=== PATIENT | female | born 1960 | race Caucasian/White ===

== ENCOUNTER 2016-11-28 06:08 | Inpatient (IN) | payer BC, OTHER ==
[~2016-11-28 06:08] MED LIST: MORPHINE SULFATE 15 MG TABLET.SA PO PRN; RINGERS SOLUTION,LACTATED 1,000 ML IV PRN; ROPIVACAINE HCL/PF 100 MG, EPINEPHrine 0.2 MG, KETOROLAC TROMETHAMINE 30 MG in NORMAL S... IJ PRN; TRANEXAMIC ACID 1,000 MG in NORMAL SALINE 100 ML IV PRN; ceFAZolin SODIUM 1 GM VIAL IV PRN
--- OUTSIDE RECORDS SUMMARY | 2016-11-28 06:13 | XMS REPORT | Continuity of Care Document ---
:1960 Author Organization [facility] ([facility]) Address [address] [place] [address] Phone [phone] Care Team Providers Name Role Phone Unavailable Primary Care Provider Unavailable Source Comments This disclosure is being made pursuant to the Care Everywhere program, applicable federal and state laws, and may not contain all informaitonavailable regarding this patient.[facility] ([facility]) Active Allergies and Adverse Reactions No Active Allergies Current Medications Not on file Active Problems Not on file Social History Tobacco Use Types Packs/Day Years Used Date Never Assessed Last Filed Vital Signs Vital Sign Reading Time Taken Blood Pressure - - Pulse - - Temperature - - Respiratory Rate - - Height 1.6 m (5' 2.99") 04/10/2002 9:06 AM CDT Weight 93.096 kg (205 lb 3.8 oz) 04/10/2002 9:06 AM CDT Body Mass Index 36.37 04/10/2002 9:06 AM CDT Oxygen Saturation - - Plan of Care Health Maintenance Due Date Last Done Comments HCV Screening 1960 Hepatitis B Vaccine (1 of 3 - Primary Series) 1960 Tdap Vaccine 1971 Lipid Disorder Screening 1978 MMR Vaccine 1978 Td Vaccine 1978 Cervical Cancer Screening 1990 Mammogram 2000 Colonoscopy 2010 Influenza Vaccine: Seasonal (#1) 03/14/2016 Results from Last 3 Months Not on file
[2016-11-28] MEDS ORDERED: RINGERS SOLUTION,LACTATED 1,000 ML IV ONE ×3 (07:40→10:34)
[2016-11-28] MEDS ORDERED: MAG HYDROX/ALUMINUM HYD/SIMETH 30 ML UDC PO PRN (10:33)
[2016-11-28] MEDS ORDERED: PROMETHAZINE HCL 5 MG in DEXTROSE 5 % IN WATER 50 ML IV PRN ×2 (10:33)
[2016-11-28] MEDS ORDERED: ACETAMINOPHEN 500 MG TABLET PO PRN (10:33)
[2016-11-28] MEDS ORDERED: diphenhydrAMINE HCL 50 MG/ML VIAL IV PRN (10:33)
[2016-11-28] MEDS ORDERED: HYDROmorphone HCL 1 MG/ML DISP.SYRIN IV PRN (10:33)
[2016-11-28] MEDS ORDERED: ONDANSETRON HCL/PF 2 MG/ML VIAL IV PRN (10:33)
[2016-11-28] MEDS ORDERED: MAGNESIUM HYDROXIDE 30 ML UDC PO PRN (10:33)
[2016-11-28] MEDS ORDERED: ZOLPIDEM TARTRATE 5 MG TABLET PO PRN (10:33)
--- NOTE | 2016-11-28 10:39 | OR ---
Operative Report - Dictated Report Narrative: Date: 11/28/2016 Preoperative diagnosis: Left Knee degenerative joint disease. Postoperative diagnosis: Left Knee degenerative joint disease. Procedure: Left Total knee arthroplasty. Surgeon: Daryl Art M.D. Plc Programmer: Gregory Ivey PA-C Anesthesia: Spinal with regional block and local periarticular joint injection. Complications: None Specimens: Bone for disposal. Estimated blood loss: Minimal. Tourniquet time: 120 Minutes at 325 millimeters of mercury. Retained implants: Depuy Attune size 6 narrow left lugged cemented posterior stabilized femoral component. Size 4 fixed-bearing cemented tibial platform. 6 by 5 millimeter posterior stabilized cross-linked tibial insert. 35 millimeter medialized patella button. Indications: Mrs. Kaufman is a 56-year-old female who has long-standing bilateral knee pain. She is undergoing staged bilateral total knee arthroplasties with the left being the one today. This patient was followed in my clinic for period of time with significant complaints of left knee pain consistent with arthritic changes. They had failed conservative measures including, but not limited to, activity modification, passage of time, medications, and other conservative measures. Patient wished to proceed with surgical treatment. The risks, benefits, and alternatives were discussed in clinic. The risks of , blood clots, bleeding, infection, nerve/tendon blood vessel/ injury, malposition of components, intraoperative fracture, postoperative limited range of motion, persistent pain, failure of components, and need for additional procedures. Patient wished to proceed consent was obtained after answering all questions. Procedure: After marking the correct extremity on the floor, the patient was taken to the operating room. A timeout was performed. IV antibiotics consisting of Ancef were administered prior to the procedure. A regional followed by spinal anesthetic was induced by anesthesia on the operative table with all bony prominences well-padded. Camacho catheter was placed, and a bump was placed under the operative side buttock. SCDs and NEGRITO hose were utilized on the nonoperative leg. A well-padded tourniquet was applied to the operative thigh. The operative leg was then pre-scrubbed with alcoho,l prepped, and draped in a standard sterile fashion. After exsanguinating the extremity with an Esmarch bandage, the tourniquet was inflated. After marking out the anterior knee for standard incision centered over the patella, the skin was incised and dissected down to the joint retinaculum. The joint retinaculum was marked out as well as the horizontal axis of the patella, and a standard medial parapatellar arthrotomy was then made. The most proximal aspect of the quadriceps tendon and the patella tendon insertion were protected from release. A partial synovectomy was performed as well as a resection of the infrapatellar fat pad. The distal femoral fat pad proximal to the trochlea was also resected using cautery. The soft tissues were elevated off the medial aspect of the proximal tibia using a Camp elevator ensuring that we did not transect the medial collateral ligament. Upon initial evaluation range of motion was approximately 0 degrees to 110 degrees of flexion. There were signs of advanced arthrosis in the medial, patellofemoral, and to a lesser degree the lateral joint spaces. There were large marginal osteophytes which were removed with a rongeur. The knee was hyperflexed and the patella was tucked laterally. Protecting the surrounding soft tissues with Homans, an entry drill was placed down the femoral canal using Whitesides line for guidance into the entry point. The intramedullary femoral alignment rahat was utilized in order to cut the distal femur in 5 degrees of valgus resecting 10 millimeters of bone. Next the distal femur was sized to a size 6. A posterior referencing guide was utilized to place the distal femoral cutting block in 3 degrees of external rotation. This was pinned into place. The rotation was confirmed both visually and based on anatomic landmarks. The 4 in 1 cutting jig of the appropriate size was utilized in order to make all bony cuts. The angle wing was used to ensure no notching. Retractors were utilized in order to protect surrounding soft tissues. This cut did not result in any excessive notching. We then cut the box centered over the distal femur. This allowed for resection of the anterior and posterior cruciate ligaments. I then turned my attention to the preparation of the tibia. Using an extra medullary tibial alignment rahat, 2 millimeters of bone was resected off the medial articular surface. This was made perpendicular to the mechanical axis of the joint with the alignment rahat centered over the ankle mortise. The alignment rahat was checked and was noted to be parallel to the mechanical axis, centered over the medial one third of the tibial tubercle, paralleling the anterior surface of the tibia. We then turned our attention to the remaining meniscus and soft tissues. These were removed while protecting the surrounding ligaments and soft tissues. The marginal osteophytes off the anterior, posterior, medial, lateral aspects of the femur and tibia were removed. The tibia was sized out to a size 4. Next the tibia was drilled and punched in an externally rotated position. Next the trial femur and a series of tibial inserts were utilized in order to allow for full extension and maximal flexion. It was found that a 5 millimeter insert gave the best range of motion and stability at multiple flexion points as well as at full extension there was less than 2 mm of gapping both medially and laterally. There is minimal anterior translation with the knee at 90 degrees of flexion and no signs of being able to dislocate the knee. The patella was then prepared. The initial thickness was 20 millimeters. This was reamed down to 12 millimeters parallel to the anterior surface of the patella. It was sized out to a size 35 medialized patella button. This was then drilled and trialed. Without any medial restraint the patella tracked appropriately and did not sublux or dislocate. At this point, it was felt these were the appropriate sized implants, and all trials were removed. The standard periarticular joint injection consisting of ropivacaine, Toradol, and epinephrine were injected into the periarticular joint tissues. The bony surfaces were thoroughly irrigated with a pulsatile- suction saline irrigation device. A bone plug from the prior resected anterior chamfer cut was placed into the drill hole at the distal femur. The bony surfaces were then dried in preparation for placement of the implants. The cement was vacuum mixed per the vp human resources's instructions. The cement was placed on the dry bony surfaces and posterior aspect of the implants. The implants were impacted into place, removing all extruded cement. At this point anesthesia administered tranexamic acid per protocol intravenously. The knee was placed in extension with axial loading with the trial insert while the cement cured. Once the cement cured, all remaining extruded cement was removed. The knee was placed through a range of motion with the trial insert to ensure appropriate range of motion and stability. Final range of motion was approximately 0 to 120 degrees. The knee was again thoroughly irrigated with pulsatile saline lavage. The final polyethylene insert was then impacted into place ensuring no retained soft tissues. The remaining periarticular joint injection was injected. A medium Hemovac drain was placed exiting superior laterally. The knee was then placed over a triangle and the arthrotomy was closed with interrupted #1 Vicryl after thoroughly irrigating the joint. The deep and subcutaneous tissues were closed with interrupted oh and 3-0 Vicryl respectively. Skin was closed with a running subcutaneous 3-0 Monocryl and Prineo Dermabond dressing. 4 x 4's, ABD, Sof-Rol, and a full leg James wrap were applied. All sponge, needle, blade, and instrument counts were correct prior to closing the wounds. Postoperative condition: The patient was awoken and transferred to the postanesthesia care unit in stable condition. Plan is to be admitted to the inpatient medical/surgical floor postoperatively for 24 hours of IV antibiotics , physical therapy, occupational therapy, and medical comanagement. Patient will be weightbearing as tolerated with range of motion as tolerated. DVT prophylaxis will be with SCDs, NEGRITO hose, and pharmacological anticoagulation. Anticipated hospital stay is approximately 2-4 days.
[2016-11-28] MEDS ORDERED: ALBUTEROL SULFATE 2.5 MG/3 ML VIAL.NEB IH PRN (11:09)
[2016-11-28] MEDS: DEXTROSE 5%-LACTATED RINGERS 1,000 ML IV PRN (11:41)
[2016-11-28] MEDS: KETOROLAC TROMETHAMINE 15 MG/ML VIAL IV SCH ×3 (11:42→23:36)
[2016-11-28] MEDS: ceFAZolin SODIUM 1 GM in DEXTROSE 5 % IN WATER 100 ML IV SCH ×6 (13:00→23:35)
--- NOTE | 2016-11-28 16:28 | PN ---
Subjective - Date and Time Seen Date: 11/28/16 Time: 16:22 Subjective Narrative: She reports feeling well. Pain controlled. No nausea, vomiting, fever, or chills. Nursing reports she was hypoxic following surgery and was placed on oxygen via NC to maintain sats >90%. She denies shortness of breath at this time. Nursing also reports she has been somnolent after surgery and oxygen desats. Patient appears to be doing better. She was able to carry a conversation with me without appearing somnolent. Objective - Vitals Vitals: Last Vital Signs Temp 36.6 C 11/28/16 12:15 Pulse 82 11/28/16 14:30 Resp 18 11/28/16 14:30 BP 124/60 11/28/16 14:30 Pulse Ox 88 L 11/28/16 16:20 - Exam Constitutional: Present: Alert, Oriented x3, Cooperative ENT Exam: Present: hearing grossly normal Respiratory: Present: lungs clear, normal breath sounds, no respiratory distress Cardiovascular/Chest: Present: regular rate, rhythm, no edema Cauti Physician Documentation - Urinary Catheter Management Urethral (Camacho) Date of Insertion: 11/28/16 Time of Insertion: 08:00 Assessment/Plan - Problems/Diagnosis (1) S/P total knee replacement Problem: Acute Qualifiers: Laterality: left Qualified Code(s): Z96.652 - Presence of left artificial knee joint Narrative: POD#0 - Hypoxia following surgery, witnessed apnea. Likely combination of anesthesia/ pain medication/sleep apnea - Currently on oxygen 2lpm via NC, will wean from oxygen as able to keep sats 90 % or greater (2) Hypoxia Problem: Acute
[2016-11-28] MEDS: SENNOSIDES/DOCUSATE SODIUM 1 TAB TABLET PO SCH (20:23)
[2016-11-28] MEDS: SIMVASTATIN 20 MG TABLET PO SCH (20:23)
[2016-11-28] MEDS: rOPINIRole HCL 1 MG TABLET PO SCH (20:24)
[2016-11-28] MEDS: MORPHINE SULFATE 15 MG TABLET.SA PO SCH (20:29)
[2016-11-28] MEDS: oxyCODONE HCL/ACETAMINOPHEN 1 TAB TABLET PO PRN (23:38)
[2016-11-29] MEDS: KETOROLAC TROMETHAMINE 15 MG/ML VIAL IV SCH ×4 (04:51→22:12)
[2016-11-29 05:54] LABS: Hematocrit 38.7 % (37.0-47.0); Hemoglobin 12.1 gm/dL (12.5-16.0); Mean Corpuscular Hemoglobin 27.8 pg (27-31); Mean Corpuscular Hgb Conc 31.3 g/dl (32-36); Mean Platelet Volume 10.2 fl (6.0-9.5); Platelet Count 282 K/mm3 (150-450); Red Blood Count 4.35 M/mm3 (4.2-5.4); Red Cell Distribution Width 12.6 % (11.5-14.0); White Blood Count 14.8 K/mm3 (4.0-10.5)
[2016-11-29 06:10] LABS: Anion Gap 8.8 mmol/L (6.8-13.8); BUN/Creatinine Ratio 15.9 (9.0-21.6); Calcium * 8.7 mg/dL (7.9-10.9); Estimated Creat Clear 75.3; Potassium 4.8 mmol/L (3.4-4.6)
[2016-11-29] MEDS: oxyCODONE HCL/ACETAMINOPHEN 1 TAB TABLET PO PRN ×3 (06:54→22:11)
--- NOTE | 2016-11-29 08:21 | PN ---
Subjective - Date and Time Seen Date: 11/29/16 Time: 08:16 Subjective Narrative: Patient reports she feels good. Pain controlled. No lightheadedness, no chest pain, no SOB, no nausea. Currently up with PT. No complaints. Objective Objective Narrative: Patient ambulating to awan. N/V intact LLE. Bandages C/D/I. Drain with minimal drainage. Diallo intact. - Vitals Vitals: Last Vital Signs Temp 36.9 C 11/29/16 07:46 Pulse 78 11/29/16 07:46 Resp 16 11/29/16 07:46 BP 110/52 11/29/16 07:46 Pulse Ox 96 11/29/16 07:46 - Abnormal Lab Findings Abnormal Lab Findings: Abnormal Lab Results 11/29/16 11/29/16 Range/Units 05:30 05:30 WBC 14.8 H (4.0-10.5) K/mm3 Hgb 12.1 L (12.5-16.0) gm/dL MCHC 31.3 L (32-36) g/dl MPV 10.2 H (6.0-9.5) fl Potassium 4.8 H (3.4-4.6) mmol/L Random Glucose 129 H (70-110) mg/dL - Exam Constitutional: Present: Alert, Oriented x3, Cooperative, No distress Cauti Physician Documentation - Urinary Catheter Management Urethral (Diallo) Date of Insertion: 11/28/16 Time of Insertion: 08:00 Assessment/Plan - Problems/Diagnosis (1) Acute blood loss anemia Problem: Acute Narrative: observation, repeat labs tomorrow (2) Hyperlipidemia Problem: Acute (3) COPD (chronic obstructive pulmonary disease) Problem: Acute (4) Hyperkalemia Problem: Acute (5) S/P total knee replacement Problem: Acute Qualifiers: Laterality: left Qualified Code(s): Z96.652 - Presence of left artificial knee joint Narrative: PT, pain control, NPO midnight tonight for RTKA tomorrow, recheck labs, pull drain today, continue diallo, anticoagulation-hold tomorrow
[2016-11-29] MEDS: PARoxetine HCL 10 MG TABLET PO SCH (09:21)
[2016-11-29] MEDS: MORPHINE SULFATE 15 MG TABLET.SA PO SCH ×2 (09:21→20:11)
[2016-11-29] MEDS: ENOXAPARIN SODIUM 40 MG/0.4 ML SYRG SC SCH (09:41)
--- NOTE | 2016-11-29 14:43 | PN ---
Subjective - Date and Time Seen Date: 11/29/16 Time: 14:32 Subjective Narrative: Samara is a 56 year old female that is s/p left TKA by dr. mckeon POD #1. plan is for right TKA tomorrow. pain under control with oral percocet. hgb stable. denies cp, dyspnea. has been up walking in halls today with assistance. Objective - Review of Systems Generalized/Overall Review: Reports: Fatigue EENTM: Reports: No Symptoms Reported Respiratory: Reports: No Symptoms Reported Cardiac: Reports: No Symptoms Reported Abdominal: Reports: No Symptoms Reported Genitourinary Symptoms: Reports: No Symptoms Reported Musculoskeletal Complaints: Reports: Joint Pain, Joint Swelling, Muscle Pain Neurological: Reports: No Symptoms Reported Skin: Reports: No Symptoms Reported Endocrine: Reports: No Symptoms Reported - Vitals Vitals: Last Vital Signs Temp 36.7 C 11/29/16 12:15 Pulse 72 11/29/16 12:15 Resp 18 11/29/16 12:15 BP 107/53 11/29/16 12:15 Pulse Ox 95 11/29/16 12:15 - Abnormal Lab Findings Abnormal Lab Findings: Abnormal Lab Results 11/29/16 11/29/16 Range/Units 05:30 05:30 WBC 14.8 H (4.0-10.5) K/mm3 Hgb 12.1 L (12.5-16.0) gm/dL MCHC 31.3 L (32-36) g/dl MPV 10.2 H (6.0-9.5) fl Potassium 4.8 H (3.4-4.6) mmol/L Random Glucose 129 H (70-110) mg/dL - Exam Constitutional: Present: Alert, Oriented x3, Cooperative ENT Exam: Present: hearing grossly normal Neck: Present: full range of motion, supple Breasts: Present: Exam deferred Respiratory: Present: chest non-tender, lungs clear, normal breath sounds, no respiratory distress Cardiovascular/Chest: Present: normal peripheral pulses, regular rate, rhythm, no chest tenderness Abdomen: Present: Normal bowel sounds, soft, nontender, nondistended /Rectal: Present: Exam deferred Extremity: Present: no calf tenderness, leg pain - left, swelling - left knee Skin Exam: Present: normal color, warm/dry, no cyanosis Neurologic: Present: alert, oriented x 3 Cauti Physician Documentation - Urinary Catheter Management Urethral (Camacho) Urethral Indwelling: Yes Reason for Continuing Indwelling Catheter: Surgical Procedure Date of Insertion: 11/28/16 Time of Insertion: 08:00 Assessment/Plan Plan Narrative: Code status: Full Code GI Proph: Start on Protonix. VTE: anticoagulation per ortho. - Problems/Diagnosis (1) COPD (chronic obstructive pulmonary disease) Problem: Chronic Qualifiers: COPD type: unspecified COPD Qualified Code(s): J44.9 - Chronic obstructive pulmonary disease, unspecified (2) Hyperkalemia Problem: Resolved (3) Hyperlipidemia Problem: Chronic Qualifiers: Hyperlipidemia type: other hyperlipidemia Qualified Code(s): E78.4 - Other hyperlipidemia (4) Hypoxia Problem: Resolved Narrative: currently on RA - encourage incentive spirometer and ambulation. (5) S/P total knee replacement Problem: Acute Qualifiers: Laterality: left Qualified Code(s): Z96.652 - Presence of left artificial knee joint Narrative: per ortho. awaiting right TKA in am. good pain management with percocet.
[2016-11-29] MEDS ORDERED: ceFAZolin SODIUM/DEXTROSE,ISO 2 GM/50 ML BAG IV ONE (16:31)
[2016-11-29] MEDS ORDERED: ceFAZolin SODIUM 1 GM VIAL IV PRN (16:54)
[2016-11-29] MEDS: PANTOPRAZOLE SODIUM 20 MG TABLET.DR PO SCH (20:11)
[2016-11-29] MEDS: SENNOSIDES/DOCUSATE SODIUM 1 TAB TABLET PO SCH (20:12)
[2016-11-29] MEDS: rOPINIRole HCL 1 MG TABLET PO SCH (20:12)
[2016-11-29] MEDS: SIMVASTATIN 20 MG TABLET PO SCH (20:12)
[2016-11-30] MEDS ORDERED: RINGERS SOLUTION,LACTATED 1,000 ML IV PRN ×2 (01:21→06:00)
[2016-11-30] MEDS: KETOROLAC TROMETHAMINE 15 MG/ML VIAL IV SCH ×4 (05:04→22:03)
[2016-11-30 05:50] LABS: Hematocrit 36.5 % (37.0-47.0); Hemoglobin 11.4 gm/dL (12.5-16.0); Mean Corpuscular Hemoglobin 27.8 pg (27-31); Mean Corpuscular Hgb Conc 31.2 g/dl (32-36); Mean Platelet Volume 10.4 fl (6.0-9.5); Neutrophil # 6.5 K/mm3 (1.3-6.0); Neutrophil % 58.1 % (42-75.0); Platelet Count 225 K/mm3 (150-450); Red Cell Distribution Width 12.8 % (11.5-14.0); White Blood Count 11.2 K/mm3 (4.0-10.5)
[2016-11-30] MEDS ORDERED: MORPHINE SULFATE 15 MG TABLET.SA PO PRN (06:00)
[2016-11-30] MEDS ORDERED: ceFAZolin SODIUM 1 GM VIAL IV PRN ×2 (06:00)
[2016-11-30] MEDS ORDERED: ROPIVACAINE HCL/PF 100 MG, EPINEPHrine 0.2 MG, KETOROLAC TROMETHAMINE 30 MG in NORMAL S... IJ PRN (06:00)
[2016-11-30] MEDS ORDERED: TRANEXAMIC ACID 1,000 MG in NORMAL SALINE 100 ML IV PRN (06:00)
[2016-11-30 06:07] LABS: Anion Gap 9.1 mmol/L (6.8-13.8); BUN/Creatinine Ratio 24.2 (9.0-21.6); Calcium * 8.7 mg/dL (7.9-10.9); Carbon Dioxide 30.9 mmol/L (24-32.6); Estimated Creat Clear 78.7
[2016-11-30] MEDS ORDERED: RINGERS SOLUTION,LACTATED 1,000 ML IV ONE ×3 (07:25→09:45)
[2016-11-30] MEDS ORDERED: ceFAZolin SODIUM 1 GM in DEXTROSE 5 % IN WATER 100 ML IV PRN ×2 (08:00)
--- NOTE | 2016-11-30 10:06 | OR ---
Operative Report - Dictated Report Narrative: Date: 11/30/2016 Preoperative diagnosis: Right Knee degenerative joint disease. Postoperative diagnosis: Right Knee degenerative joint disease. Procedure: Right Total knee arthroplasty. Surgeon: Daryl Art M.D. Chemical Dependency Therapist: Gregory Ivey PA-C Anesthesia: Spinal with regional block and local periarticular joint injection. Complications: None Specimens: Bone for disposal. Estimated blood loss: Minimal. Tourniquet time: 98 Minutes at 325 millimeters of mercury. Retained implants: Depuy Attune size 5 right lugged cemented posterior stabilized femoral component. Size 4 fixed-bearing cemented tibial platform. 5 by 5 millimeter posterior stabilized cross-linked tibial insert. 35 millimeter medialized patella button. Indications: Mrs. Kaufman is a 56-year-old female who underwent a left total knee 2 days prior and is here today for a right total knee for bilateral knee degenerative disease. This patient was followed in my clinic for period of time with significant complaints of right knee pain consistent with arthritic changes. They had failed conservative measures including, but not limited to, activity modification, passage of time, medications, and other conservative measures. Patient wished to proceed with surgical treatment. The risks, benefits, and alternatives were discussed in clinic. The risks of , blood clots, bleeding, infection, nerve/tendon blood vessel/ injury, malposition of components, intraoperative fracture, postoperative limited range of motion, persistent pain, failure of components, and need for additional procedures. Patient wished to proceed consent was obtained after answering all questions. Procedure: After marking the correct extremity on the floor, the patient was taken to the operating room. A timeout was performed. IV antibiotics consisting of Ancef were administered prior to the procedure. A regional followed by spinal anesthetic was induced by anesthesia on the operative table with all bony prominences well-padded. Camacho catheter was already in place, and a bump was placed under the operative side buttock. SCDs and NEGRITO hose were utilized on the nonoperative leg. A well-padded tourniquet was applied to the operative thigh. The operative leg was then pre-scrubbed with alcohol, prepped , and draped in a standard sterile fashion. After exsanguinating the extremity with an Esmarch bandage, the tourniquet was inflated. After marking out the anterior knee for standard incision centered over the patella, the skin was incised and dissected down to the joint retinaculum. The joint retinaculum was marked out as well as the horizontal axis of the patella, and a standard medial parapatellar arthrotomy was then made. The most proximal aspect of the quadriceps tendon and the patella tendon insertion were protected from release. A partial synovectomy was performed as well as a resection of the infrapatellar fat pad. The distal femoral fat pad proximal to the trochlea was also resected using cautery. The soft tissues were elevated off the medial aspect of the proximal tibia using a Camp elevator ensuring that we did not transect the medial collateral ligament. Upon initial evaluation range of motion was approximately 10 degrees to 110 degrees of flexion. There were signs of advanced arthrosis in the medial and patellofemoral and to a lesser degree lateral joint spaces. There were large marginal osteophytes which were removed with a rongeur. The knee was hyperflexed and the patella was tucked laterally. Protecting the surrounding soft tissues with Homans, an entry drill was placed down the femoral canal using Whitesides line for guidance into the entry point. The intramedullary femoral alignment rahat was utilized in order to cut the distal femur in 5 degrees of valgus resecting 11 millimeters of bone. Next the distal femur was sized to a size 5. A posterior referencing guide was utilized to place the distal femoral cutting block in 3 degrees of external rotation. This was pinned into place. The rotation was confirmed both visually and based on anatomic landmarks. The 4 in 1 cutting jig of the appropriate size was utilized in order to make all bony cuts. The angle wing was used to ensure no notching. Retractors were utilized in order to protect surrounding soft tissues. This cut did not result in any excessive notching. We then cut the box centered over the distal femur. This allowed for resection of the anterior and posterior cruciate ligaments. I then turned my attention to the preparation of the tibia. Using an extra medullary tibial alignment rahat, 3 millimeters of bone was resected off the medial articular surface. This was made perpendicular to the mechanical axis of the joint with the alignment rahat centered over the ankle mortise. The alignment rahat was checked and was noted to be parallel to the mechanical axis, centered over the medial one third of the tibial tubercle, paralleling the anterior surface of the tibia. We then turned our attention to the remaining meniscus and soft tissues. These were removed while protecting the surrounding ligaments and soft tissues. The marginal osteophytes off the anterior, posterior, medial, lateral aspects of the femur and tibia were removed. The tibia was sized out to a size 4. Next the tibia was drilled and punched in an externally rotated position. Next the trial femur and a series of tibial inserts were utilized in order to allow for full extension and maximal flexion. It was found that a 5 millimeter insert gave the best range of motion and stability at multiple flexion points as well as at full extension there was less than 2 mm of gapping both medially and laterally. There is minimal anterior translation with the knee at 90 degrees of flexion and no signs of being able to dislocate the knee. The patella was then prepared. The initial thickness was 20 millimeters. This was reamed down to 12 millimeters parallel to the anterior surface of the patella. It was sized out to a size 35 medialized patella button. This was then drilled and trialed. Without any medial restraint the patella tracked appropriately and did not sublux or dislocate. At this point, it was felt these were the appropriate sized implants, and all trials were removed. The standard periarticular joint injection consisting of ropivacaine, Toradol, and epinephrine were injected into the periarticular joint tissues. The bony surfaces were thoroughly irrigated with a pulsatile- suction saline irrigation device. A bone plug from the prior resected anterior chamfer cut was placed into the drill hole at the distal femur. The bony surfaces were then dried in preparation for placement of the implants. The cement was vacuum mixed per the paring machine operator's instructions. The cement was placed on the dry bony surfaces and posterior aspect of the implants. The implants were impacted into place, removing all extruded cement. At this point anesthesia administered tranexamic acid per protocol intravenously. The knee was placed in extension with axial loading with the trial insert while the cement cured. Once the cement cured, all remaining extruded cement was removed. The knee was placed through a range of motion with the trial insert to ensure appropriate range of motion and stability. Final range of motion was approximately 0 to 120 degrees. The knee was again thoroughly irrigated with pulsatile saline lavage. The final polyethylene insert was then impacted into place ensuring no retained soft tissues. The remaining periarticular joint injection was injected. A medium Hemovac drain was placed exiting superior laterally. The knee was then placed over a triangle and the arthrotomy was closed with interrupted #1 Vicryl after thoroughly irrigating the joint. The deep and subcutaneous tissues were closed with interrupted oh and 3-0 Vicryl respectively. Skin was closed with a running subcutaneous 3-0 Monocryl and trav. Xeroform, 4 x 4's, ABD, Sof-Rol, and a full leg James wrap were applied. All sponge, needle, blade, and instrument counts were correct prior to closing the wounds. Postoperative condition: The patient was awoken and transferred to the postanesthesia care unit in stable condition. Plan is to be admitted to the inpatient medical/surgical floor postoperatively for 24 hours of IV antibiotics , physical therapy, occupational therapy, and medical comanagement. Patient will be weightbearing as tolerated with range of motion as tolerated. DVT prophylaxis will be with SCDs, NEGRITO hose, and pharmacological anticoagulation. Anticipated hospital stay is approximately 2-4 days.
[2016-11-30] MEDS: MORPHINE SULFATE 15 MG TABLET.SA PO SCH ×2 (10:31→20:00)
[2016-11-30] MEDS: DEXTROSE 5%-LACTATED RINGERS 1,000 ML IV PRN (11:24)
[2016-11-30] MEDS: ENOXAPARIN SODIUM 40 MG/0.4 ML SYRG SC SCH (11:38)
[2016-11-30] MEDS: PANTOPRAZOLE SODIUM 20 MG TABLET.DR PO SCH ×2 (11:52→20:00)
[2016-11-30] MEDS: PARoxetine HCL 10 MG TABLET PO SCH (11:52)
[2016-11-30] MEDS: ceFAZolin SODIUM 1 GM in DEXTROSE 5 % IN WATER 100 ML IV SCH ×4 (13:52→20:00)
[2016-11-30] MEDS: oxyCODONE HCL/ACETAMINOPHEN 1 TAB TABLET PO PRN ×2 (15:46→22:02)
[2016-11-30] MEDS: rOPINIRole HCL 1 MG TABLET PO SCH (20:00)
[2016-11-30] MEDS: SENNOSIDES/DOCUSATE SODIUM 1 TAB TABLET PO SCH (20:00)
[2016-11-30] MEDS: SIMVASTATIN 20 MG TABLET PO SCH (20:00)
[2016-12-01] MEDS: ceFAZolin SODIUM 1 GM in DEXTROSE 5 % IN WATER 100 ML IV SCH ×2 (02:38)
[2016-12-01] MEDS: oxyCODONE HCL/ACETAMINOPHEN 1 TAB TABLET PO PRN ×5 (02:40→22:33)
[2016-12-01] MEDS: KETOROLAC TROMETHAMINE 15 MG/ML VIAL IV SCH ×4 (04:01→22:34)
[2016-12-01 05:36] LABS: Hematocrit 33.4 % (37.0-47.0); Hemoglobin 10.3 gm/dL (12.5-16.0); Mean Cell Volume 90.8 fl (78-100); Mean Corpuscular Hgb Conc 30.8 g/dl (32-36); Mean Platelet Volume 10.1 fl (6.0-9.5); Platelet Count 214 K/mm3 (150-450); Red Blood Count 3.68 M/mm3 (4.2-5.4); Red Cell Distribution Width 12.8 % (11.5-14.0); White Blood Count 10.7 K/mm3 (4.0-10.5)
[2016-12-01 05:48] LABS: Anion Gap 7.1 mmol/L (6.8-13.8); BUN/Creatinine Ratio 10.4 (9.0-21.6); Calcium * 8.5 mg/dL (7.9-10.9); Carbon Dioxide 34.2 mmol/L (24-32.6); Estimated Creat Clear 77.6; Potassium 4.3 mmol/L (3.4-4.6)
[2016-12-01] MEDS: PANTOPRAZOLE SODIUM 20 MG TABLET.DR PO SCH ×2 (07:18→20:49)
--- NOTE | 2016-12-01 07:55 | PN ---
Subjective - Date and Time Seen Date: 12/01/16 Time: 07:54 Subjective Narrative: Subjective: Reports minimal pain. Was able to get to the chair with therapy. Pain is well-controlled. Tolerating by mouth intake. Denies any nausea or vomiting. Denies calf pain. Slept well. Physical exam: Alert and oriented to person, place and time Bilateral lower Extremity: Palpable dorsalis pedis pulse. Sensation grossly intact to light touch. Dressings dry. Able to flex and extend ankle and toes. No excessive drainage. Calf and thigh are soft and nontender. Assessment: Postop day 1 and 3 status post staged left and right total knee arthroplasty. Plan: Continue with physical and occupational therapy weightbearing as tolerated. Continue with anticoagulation. 24 hours postoperative prophylactic antibiotics. Pain control with goal to rely on oral medications. Continue bowel regimen. Will need 6 weeks with walker or assitive device to protect joint while ambulating during the recovery process. Discharge planning. Discontinue drain and Camacho catheter. Repeat labs in a.m. Objective - Vitals Vitals: Last Vital Signs Temp 37.3 C 12/01/16 07:41 Pulse 87 12/01/16 07:41 Resp 16 12/01/16 07:41 BP 105/60 12/01/16 07:41 Pulse Ox 92 12/01/16 07:41 - Abnormal Lab Findings Abnormal Lab Findings: Abnormal Lab Results 12/01/16 12/01/16 Range/Units 05:32 05:32 WBC 10.7 H (4.0-10.5) K/mm3 RBC 3.68 L (4.2-5.4) M/mm3 Hgb 10.3 L (12.5-16.0) gm/dL Hct 33.4 L (37.0-47.0) % MCHC 30.8 L (32-36) g/dl MPV 10.1 H (6.0-9.5) fl Carbon Dioxide 34.2 H (24-32.6) mmol/L Random Glucose 138 H (70-110) mg/dL Cauti Physician Documentation - Urinary Catheter Management Urethral (Camacho) Urethral Indwelling: Yes Date of Insertion: 11/28/16 Time of Insertion: 08:00 Assessment/Plan - Problems/Diagnosis (1) Acute blood loss anemia Problem: Acute (2) S/P total knee replacement Problem: Acute Qualifiers: Laterality: bilateral Qualified Code(s): Z96.653 - Presence of artificial knee joint, bilateral (3) COPD (chronic obstructive pulmonary disease) Problem: Chronic Qualifiers: COPD type: unspecified COPD Qualified Code(s): J44.9 - Chronic obstructive pulmonary disease, unspecified (4) Hyperlipidemia Problem: Chronic Qualifiers: Hyperlipidemia type: other hyperlipidemia Qualified Code(s): E78.4 - Other hyperlipidemia
[2016-12-01] MEDS: PARoxetine HCL 10 MG TABLET PO SCH (08:40)
[2016-12-01] MEDS: ENOXAPARIN SODIUM 40 MG/0.4 ML SYRG SC SCH (08:40)
[2016-12-01] MEDS: MORPHINE SULFATE 15 MG TABLET.SA PO SCH ×2 (08:40→20:49)
--- NOTE | 2016-12-01 16:34 | PN ---
Subjective - Date and Time Seen Date: 12/01/16 Time: 16:30 Subjective Narrative: Liss reports feeling tired today. Pain controlled. No nausea, vomiting, fever. Currently reports feeling chilled. Warm blanket given. Objective - Vitals Vitals: Last Vital Signs Temp 37.0 C 12/01/16 15:00 Pulse 98 12/01/16 15:00 Resp 16 12/01/16 15:00 BP 116/54 12/01/16 15:00 Pulse Ox 89 L 12/01/16 15:00 - Abnormal Lab Findings Abnormal Lab Findings: Abnormal Lab Results 12/01/16 12/01/16 Range/Units 05:32 05:32 WBC 10.7 H (4.0-10.5) K/mm3 RBC 3.68 L (4.2-5.4) M/mm3 Hgb 10.3 L (12.5-16.0) gm/dL Hct 33.4 L (37.0-47.0) % MCHC 30.8 L (32-36) g/dl MPV 10.1 H (6.0-9.5) fl Carbon Dioxide 34.2 H (24-32.6) mmol/L Random Glucose 138 H (70-110) mg/dL - Exam Constitutional: Present: Alert, Oriented x3, Cooperative ENT Exam: Present: hearing grossly normal Respiratory: Present: lungs clear, normal breath sounds Cardiovascular/Chest: Present: regular rate, rhythm, no murmur Skin Exam: Present: normal color, warm/dry, no cyanosis Cauti Physician Documentation - Urinary Catheter Management Urethral (Camacho) Urethral Indwelling: Yes Date of Insertion: 11/28/16 Time of Insertion: 08:00 Assessment/Plan - Problems/Diagnosis (1) S/P total knee replacement Problem: Acute Qualifiers: Laterality: bilateral Qualified Code(s): Z96.653 - Presence of artificial knee joint, bilateral Narrative: Continue with PT, ortho. (2) Hypoxia Problem: Resolved Narrative: Encouraged incentive spirometer. Continue to wean from oxygen with activity. Concern with underlying sleep apnea.
[2016-12-01] MEDS: SENNOSIDES/DOCUSATE SODIUM 1 TAB TABLET PO SCH (20:49)
[2016-12-01] MEDS: SIMVASTATIN 20 MG TABLET PO SCH (20:49)
[2016-12-01] MEDS: rOPINIRole HCL 1 MG TABLET PO SCH (20:49)
[2016-12-02] MEDS: oxyCODONE HCL/ACETAMINOPHEN 1 TAB TABLET PO PRN ×4 (02:51→17:17)
[2016-12-02] MEDS: KETOROLAC TROMETHAMINE 15 MG/ML VIAL IV SCH (05:29)
[2016-12-02 05:35] LABS: Hematocrit 31.1 % (37.0-47.0); Hemoglobin 9.8 gm/dL (12.5-16.0); Mean Cell Volume 89.4 fl (78-100); Mean Corpuscular Hemoglobin 28.2 pg (27-31); Mean Corpuscular Hgb Conc 31.5 g/dl (32-36); Mean Platelet Volume 10.3 fl (6.0-9.5); Platelet Count 242 K/mm3 (150-450); Red Blood Count 3.48 M/mm3 (4.2-5.4); Red Cell Distribution Width 12.6 % (11.5-14.0); White Blood Count 12.5 K/mm3 (4.0-10.5)
[2016-12-02 05:45] LABS: Anion Gap 9.7 mmol/L (6.8-13.8); BUN/Creatinine Ratio 11.8 (9.0-21.6); Calcium * 8.3 mg/dL (7.9-10.9); Carbon Dioxide 34.5 mmol/L (24-32.6); Estimated Creat Clear 76.4; Potassium 4.2 mmol/L (3.4-4.6)
[2016-12-02] MEDS: PANTOPRAZOLE SODIUM 20 MG TABLET.DR PO SCH (07:26)
[2016-12-02] MEDS: MORPHINE SULFATE 15 MG TABLET.SA PO SCH (08:22)
[2016-12-02] MEDS: PARoxetine HCL 10 MG TABLET PO SCH (08:23)
[2016-12-02] MEDS: ENOXAPARIN SODIUM 40 MG/0.4 ML SYRG SC SCH (08:23)
--- NOTE | 2016-12-02 10:06 | DS ---
(1) Acute blood loss anemia Problem: Acute (2) S/P total knee replacement Problem: Acute Qualifiers: Laterality: bilateral Qualified Code(s): Z96.653 - Presence of artificial knee joint, bilateral (3) COPD (chronic obstructive pulmonary disease) Problem: Chronic Qualifiers: COPD type: unspecified COPD Qualified Code(s): J44.9 - Chronic obstructive pulmonary disease, unspecified (4) Hyperlipidemia Problem: Chronic Qualifiers: Hyperlipidemia type: other hyperlipidemia Qualified Code(s): E78.4 - Other hyperlipidemia Description of Stay: Mrs. Kaufman was admitted to the floor after undergoing staged bilateral total knee arthroplasty. She had the first one done on the day of admission and the second one on postop day 2. Tolerated this well. Was admitted to the floor postoperatively for 24 hours of IV antibiotics, pain control, medical comanagement, and occupational and physical therapy. OT and PT were consulted to assist with activities of daily living and ambulation. Was made weightbearing as tolerated with range of motion as tolerated. Pain was initially controlled with IV regimen. This was transitioned to oral once tolerating a by mouth intake. Was resumed on home diet and medications. Had a Camacho catheter inserted and the operating room which was discontinued on postoperative day 1 after the second knee. A drain was placed intraoperatively into the knee which was discontinued on postoperative day 1. Lovenox SCD and NEGRITO hose were utilized for DVT prophylaxis. Vital signs remained stable to the hospital course. Serial labs were obtained which showed a final hemoglobin of 9.8 grams. BMP was reviewed and was stable. Physical examination throughout the hospital course showed an extremity that had sensation that was intact to light touch, palpable pulses, a benign wound, motor intact to the toes, ankle, and knee. Knee range of motion was approximately 5 degrees to 75 degrees. Once an oral pain regimen was tolerated and physical therapy goals were met, it was felt that they were stable for discharge to home. Instructions: Continue with weightbearing as tolerated and range of motion as tolerated. Okay to shower and get wound wet. If there is any drainage she is to cover with dry gauze and tape. Change every 2-3 days as needed. Continue with physical therapy. Resume home diet. Report any fever over 101.5 Fahrenheit, uncontrolled pain, increased drainage, foul odor of drainage, new or increased calf pain or shortness of breath, or any other significant complaints. A 325mg dialy aspirin will be started after finishing anticoagulation if not allergic. Continue with NEGRITO hose on the operative extremity until instructed otherwise. No driving until instructed otherwise. Follow up in approximately 10-14 days. Procedures Performed: see notes below List Procedures: Bilateral total knee arthroplasty Discharge Disposition: Home self care Disposition: Home self-care Condition: Good Discharge Activity: Activity as tolerated, Weight bearing Discharge Diet: General/regular food Senior Care Therapy: Physicial Therapy Referrals: Wilfrido Arango DO [Primary Care Provider] - Additional Patient Instructions (free text): Outpatient Physical Therapy at [facility] rehab on December 05 at 10:30AM. Follow-up in the office with Dr. Art on 12-13-16 at 9:35AM. Prescriptions (Any new or edited meds): Enoxaparin Sodium [Lovenox] 40 mg SC Q24H #6 disp.syrin Morphine Sulfate [Ms Contin] 15 mg PO Q12H #20 tablet.sa Sennosides/Docusate Sodium [Senokot-S] 2 tab PO HS #60 tablet oxyCODONE HCL/ACETAMINOPHEN [Percocet 5 MG/325 MG] 2 tab PO Q4H PRN #90 tablet PRN Reason: Moderate Pain Complete Home Medications List: Complete Home Medication List: Ropinirole HCl 1 mg PO HS 06/21/12 Albuterol Sulfate [Ventolin HFA] 2 puff IH Q4H PRN 11/04/16 PARoxetine HCL [Paxil] 30 mg PO DAILY 11/04/16 Simvastatin [Zocor] 20 mg PO HS 11/04/16 Enoxaparin Sodium [Lovenox] 40 mg SC Q24H #6 disp.syrin 12/02/16 Morphine Sulfate [Ms Contin] 15 mg PO Q12H #20 tablet.sa 12/02/16 Sennosides/Docusate Sodium [Senokot-S] 2 tab PO HS #60 tablet 12/02/16 oxyCODONE HCL/ACETAMINOPHEN [Percocet 5 MG/325 MG] 2 tab PO Q4H PRN #90 tablet 12/02/16
[2016-12-02 12:59] VITALS: BP 112/62
--- NOTE | 2016-12-02 15:37 | PN ---
Subjective - Date and Time Seen Date: 12/02/16 Time: 15:37 Subjective Narrative: Liss reports feeling well. Ready to go home. Off oxygen. Pain controlled. Objective - Vitals Vitals: Last Vital Signs Temp 36.4 C L 12/02/16 12:58 Pulse 98 12/02/16 12:58 Resp 20 12/02/16 12:58 BP 112/62 12/02/16 12:58 Pulse Ox 92 12/02/16 12:58 - Abnormal Lab Findings Abnormal Lab Findings: Abnormal Lab Results 12/02/16 12/02/16 Range/Units 05:30 05:30 WBC 12.5 H (4.0-10.5) K/mm3 RBC 3.48 L (4.2-5.4) M/mm3 Hgb 9.8 L (12.5-16.0) gm/dL Hct 31.1 L (37.0-47.0) % MCHC 31.5 L (32-36) g/dl MPV 10.3 H (6.0-9.5) fl Carbon Dioxide 34.5 H (24-32.6) mmol/L Random Glucose 142 H (70-110) mg/dL - Exam Constitutional: Present: Alert, Oriented x3, Cooperative ENT Exam: Present: hearing grossly normal Respiratory: Present: lungs clear, normal breath sounds Cardiovascular/Chest: Present: regular rate, rhythm, no murmur Abdomen: Present: Normal bowel sounds, soft, nontender, nondistended Skin Exam: Present: normal color, warm/dry, no cyanosis Cauti Physician Documentation - Urinary Catheter Management Urethral (Camacho) Urethral Indwelling: Yes Date of Insertion: 11/28/16 Time of Insertion: 08:00 Assessment/Plan - Problems/Diagnosis (1) S/P total knee replacement Problem: Acute Qualifiers: Laterality: bilateral Qualified Code(s): Z96.653 - Presence of artificial knee joint, bilateral Narrative: Ok for home discharge per ortho, PT, and medicine. (2) Hypoxia Problem: Resolved
== END 2016-12-02 17:57 | disposition home or self-care (01) | DRG 462 ==
LOC: MS 06:08
PROVIDERS: ADMIT Orthopaedic Surgery; ATTEND Orthopaedic Surgery
PROC: 0SRD0J9 Replacement of Left Knee Joint with Synthetic Substitute, Cemented, Open Approach (ICD-10-PCS; principal; 2016-11-28 08:00)
PROC: 0SRC0J9 Replacement of Right Knee Joint with Synthetic Substitute, Cemented, Open Approach (ICD-10-PCS; 2016-11-30)
DX: M17.0 Bilateral primary osteoarthritis of knee (principal); D62 Acute posthemorrhagic anemia; E87.5 Hyperkalemia; R09.02 Hypoxemia; J44.9 Chronic obstructive pulmonary disease, unspecified; E78.4 Other hyperlipidemia